=== PATIENT | female | born 1940 | race Caucasian/White ===

== ENCOUNTER 2023-05-03 10:03 | Emergency (ER) | payer MEDICARE ==
[2023-05-03] MEDS ORDERED: HYDROCHLOROTHIA25 M1 PO (10:37)
[2023-05-03] MEDS ORDERED: SERTRALINE HYDR50 MG PO (10:37)
[2023-05-03] MEDS ORDERED: SIMVASTATIN20 MG PO (10:38)
[2023-05-03] MEDS ORDERED: LOSARTAN POTASS25 M1 PO (10:38)
[2023-05-03] MEDS ORDERED: ATENOLOL50 M1 PO (10:38)
[2023-05-03 12:14] LABS: BASO % 0.2 % (0.0-1.0); EOS % 0.4 % (1.0-4.0); HEMATOCRIT 36.6 % (37.0-47.0); LYMPH # 1.2 10*3/uL (1.3-4.4); LYMPH % 13.2 % (27.0-41.0); MEAN CELL VOLUME 95.3 fl (81.0-99.0); MEAN CORPUSCULAR HGB 29.9 pg (27.0-31.0); MEAN CORPUSCULAR HGB CONC 31.4 g/dl (33.0-37.0); MONO # 0.5 10*3/uL (0.1-1.0); MONO % 5.9 % (3.0-9.0); NEUT # 7.2 10*3/uL (2.3-7.9); NEUT % 80.1 % (47.0-73.0); PLATELET COUNT AUTOMATED 153 10*3/uL (130-400); RED BLOOD COUNT 3.84 10*6/uL (4.10-5.10); RED CELL DISTRI WIDTH 13.6 % (0-14.5)
[2023-05-03 12:19] LABS: BILIRUBIN Negative (Negative); BLOOD Negative (Negative); CLARITY Clear (Clear); COLOR Yellow (Yellow); GLUCOSE Negative (Negative); KETONE Negative (Negative); LEUKO ESTERASE Negative (Negative); NITRITE Negative (Negative); SPECIFIC GRAVITY 1.015 (1.001-1.030); UROBILINOGEN 0.2 E.U./dl (0.0-1.0)
[2023-05-03 12:37] LABS: BACTERIA 1+; RBC 0-2 rbc/hpf (0-2)
[2023-05-03 12:37] LABS: POTASSIUM 4.7 mmol/L (3.4-5.1); TOTAL PROTEIN 6.4 gm/dL (6.0-8.0)
== END 2023-05-03 13:55 | disposition home or self-care (01) ==
LOC: ED 10:03
PROVIDERS: Internal Medicine
DX: R42 Dizziness and giddiness (principal); R11.0 Nausea; R21 Rash and other nonspecific skin eruption; Z79.899 Other long term (current) drug therapy

== ENCOUNTER 2024-10-03 08:47 | Emergency (ER) | payer MEDICARE ==
[~2024-10-03] VITALS: Ht 160 cm; Wt 48.6 kg
[~2024-10-03 08:47] MED LIST: ASPIRIN ADULT L81 M2 PO; ASPIRIN CHEWABL81 MG PO; ATENOLOL50 M1 PO; HYDROCHLOROTHIA25 M1 PO; LOSARTAN POTASS25 M1 PO; MEMANTINE HCL5 MG PO; SERTRALINE HYDR50 MG PO; SIMVASTATIN20 MG PO; VITAMIN D325 MCG PO
[2024-10-03] MEDS ORDERED: SODIUM CHLORIDE 0.9% 1,000 ML IV ONE ×2 (09:00→09:50)
[2024-10-03 09:16] LABS: BASO # 0.1 10*3/uL (0.0-0.1); BASO % 0.3 % (0.0-1.0); EOS # 0.1 10*3/uL (0.0-0.4); EOS % 0.7 % (1.0-4.0); HEMATOCRIT 38.5 % (37.0-47.0); MEAN CORPUSCULAR HGB 29.7 pg (27.0-31.0); MEAN CORPUSCULAR HGB CONC 31.9 g/dl (33.0-37.0); MEAN PLATELET VOLUME 8.9 fl (9.6-12.3); MONO # 0.8 10*3/uL (0.1-1.0); MONO % 4.1 % (3.0-9.0); NEUT # 17.1 10*3/uL (2.3-7.9); NEUT % 87.2 % (47.0-73.0); PLATELET COUNT AUTOMATED 272 10*3/uL (130-400); RED BLOOD COUNT 4.14 10*6/uL (4.10-5.10); RED CELL DISTRI WIDTH 13.7 % (0-14.5); WHITE BLOOD COUNT 19.6 10*3/uL (4.8-10.8)
[2024-10-03 09:36] LABS: POTASSIUM 3.8 mmol/L (3.4-5.1)
[2024-10-03 10:27] LABS: BILIRUBIN Negative (Negative); BLOOD Negative (Negative); CLARITY Clear (Clear); COLOR Yellow (Yellow); GLUCOSE Negative (Negative); KETONE Negative (Negative); LEUKO ESTERASE Negative (Negative); NITRITE Negative (Negative); UROBILINOGEN 0.2 E.U./dl (0.0-1.0)
[2024-10-03 10:35] LABS: BACTERIA TRACE; WBC 0-2 wbc/hpf (0-5)
[2024-10-03] MEDS ORDERED: AZITHROMYCIN 250 MG TAB PO ONE (10:40)
[2024-10-03] MEDS ORDERED: Ceftriaxone Sodium 1 GM/10 ML SYR IV ONE (10:40)
[2024-10-03] MEDS ORDERED: AMOX-CLAV 875-1 EACH PO (11:21)
== END 2024-10-03 11:28 | disposition home or self-care (01) ==
LOC: ED 08:47
PROVIDERS: Emergency Medicine
DX: S00.83XA Contusion of other part of head, initial encounter (principal); A41.9 Sepsis, unspecified organism; J18.9 Pneumonia, unspecified organism; E78.5 Hyperlipidemia, unspecified; F03.90 Unspecified dementia, unspecified severity, without behavioral disturbance, psychotic disturbance, mood disturbance, and anxiety; F32.A Depression, unspecified; D41.9 Neoplasm of uncertain behavior of unspecified urinary organ; D63.1 Anemia in chronic kidney disease; I12.9 Hypertensive chronic kidney disease with stage 1 through stage 4 chronic kidney disease, or unspecified chronic kidney disease; N18.4 Chronic kidney disease, stage 4 (severe); W19.XXXA Unspecified fall, initial encounter; Y93.89 Activity, other specified; Y92.89 Other specified places as the place of occurrence of the external cause; Y99.8 Other external cause status